=== PATIENT | male | born 1970 | race Caucasian/White ===

== ENCOUNTER → 2017-05-19 | Outpatient (CLI) | payer BC ==
[2017-05-19 12:24] VITALS: BMI 32.3
[2017-05-19 12:32] VITALS: BP 158/103; PULSE 53; RESP 16; TEMP 97.7
--- NOTE | 2017-06-26 03:39 | P.PN ---
Progress Note - Text DATE OF SERVICE: 05/19/2017 CHIEF COMPLAINT: Follow up sleeve gastrectomy. HISTORY OF PRESENT ILLNESS: Zeke Pop is a very pleasant 44-year-old gentleman who is status post sleeve gastrectomy August 2014. His highest lifetime weight was 348 pounds. His body mass index was 49.3. Today he comes in weighing 228 pounds. He has lost 120 pounds. He has gained 6 pounds in 2 years. His percent excess weight loss after is 69 % after 2.5 years. His body mass index is down to 32.3. No reports of gastroesophageal reflux disease or indigestion. He reports of dysphagia from swelling along his neck. Separately he reports persistent problems with panniculitis. He is on blood pressure medications although doses has decreased. He is no longer using a CPAP machine for sleep apnea. He is maintaining at least 100 g of protein daily. 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 He takes a daily multivitamin. His main concern includes a growth along his thyroid gland which is causing troubles with swallowing. PAST MEDICAL HISTORY: 1. Morbid obesity. 2. Hypertension. 3. Gastroesophageal reflux disease. 4. Depression. 5. Vitamin D deficiency. 6. Osteoarthritis. 7. Obstructive sleep apnea. 8. Irritable bowel syndrome. 9. History of myocardial ischemia. 10. DVT of the right leg. MEDICATIONS: 1. Hydralazine. 2. Zinc. 3. Oxybutynin. 4. Nystatin powder. 5. Multivitamin. 6. Lopressor. 7. Zestoretic. 8. Celexa. 9. Vitamin D. 10. Calcium. 11. Aspirin. ALLERGIES: LATEX including SHELLFISH. SOCIAL HISTORY: Lifelong nontobacco user. FAMILY HISTORY: Pertinent for morbid obesity. He also reports a family history of DVT. Family history of thyroid disorder. REVIEW OF SYSTEMS: CONSTITUTIONAL: Personal heaviest weight of 348 pounds. Highest body mass index of 49.9. [place] body weight of 173 pounds. He has lost 120 pounds. Percent excess weight loss is 69%. Present body mass index down from 49.3 to 32.3.. CARDIOVASCULAR: Moderate improvement of his hypertension. Also resolution of dyslipidemia. GASTROINTESTINAL: No reports of reflux disease. No reports of nausea and vomiting. MUSCULOSKELETAL: Lower back including bilateral hip and knee pain is now resolved. RESPIRATORY: No further reports of obstructive sleep apnea. No reports of pneumonia. HEMATOLOGIC: Prior history of deep venous thrombosis, now off all anticoagulants. HEENT: No troubles with vision or hearing. Has dysphagia from thyroid nodule. ENDOCRINE: No reports of diabetes. Has dysphagia from thyroid nodule. NEURO: No reports of headache or seizure disorders. PSYCH: His depression is well controlled. SKIN: No skin cancer. History panniculitis. PHYSICAL EXAM: VITAL SIGNS: 5 feet 10-1/2 inches, body weight of 228 pounds. BMI of 32.3. Vital Signs Temp 97.7 F 05/19/17 12:29 Pulse 53 L 05/19/17 12:29 Resp 16 05/19/17 12:29 BP 158/103 05/19/17 12:29 Pulse Ox GENERAL: Well developed and in no acute distress. Pleasant. HEENT: No sclera icterus. Extraocular movements grossly intact. Moist buccal mucosa. Head is atraumatic, normocephalic. Hears conversational speech. No nasal drainage. NECK: Supple without lymphadenopathy. No JV distention. Palpable fullness over the right thyroid gland over 4 cm. CHEST: Non-labored respirations and equal bilateral excursions. CARDIOVASCULAR: Regular rate and rhythm. Palpable 2+ radial pulses. ABDOMEN: Soft, nontender. Nondistended. Mild hyperemia over pannus consistent with panniculitis. MUSCULOSKELETAL: No clubbing, cyanosis or edema. NEUROLOGIC: No focal or lateralizing signs. Cranial nerves II through XII grossly intact. PSYCH: Appropriate affect. Alert and oriented to person, place and time. SKIN: Good skin turgor. Well perfused. STUDIES: Ultrasound of the thyroid gland reviewed demonstrating over 4.5-5 cm growth along the right thyroid gland. Imaging and studies were reviewed with him in detail. ASSESSMENT: 1. History of morbid obesity due to exogenous caloric intake, resolved. 2. Body mass index decrease from 49.3 to 32.3. 3. Hypertensive heart disease. 4. Dyslipidemia, resolved. 5. Status post sleeve gastrectomy. 6. Osteoarthritis of the bilateral knees and hips, improved. 7. Obstructive sleep apnea improved, resolved. 8. Thyroid neoplasm. 9. Dysphagia from thyroid nodule. 10. Panniculitis. PLAN: 1. Recommend bariatric metabolic panel. 2. On exam, he has a symptomatic thyroid nodule. May benefit from partial thyroidectomy. 3. He is pending biopsy of the suspected thyroid nodule. 4. On exam, he has mild panniculitis. Despite treatment of medicated and prescribed powders, he has had more than 2-3 years of therapy. Recommend evaluation for panniculectomy.
== END | disposition home or self-care (01) ==
LOC: BARWHC3 11:54
PROVIDERS: ATTEND Surgery Plastic and Reconstructive Surgery
DX: I11.0 Hypertensive heart disease with heart failure (principal); D49.7 Neoplasm of unspecified behavior of endocrine glands and other parts of nervous system; R13.10 Dysphagia, unspecified; M79.3 Panniculitis, unspecified
CPT/HCPCS: 97803; 99211

== ENCOUNTER → 2017-05-24 | Outpatient (CLI) | payer BC ==
[2017-05-24 10:17] LABS: CH 31.1; CHCM 33.4; HCT 47.7 % (39.0-53.0); HDW 2.44; HGB 15.4 gm/dL (13.0-17.5); MCH 30.2 pg (25.0-35.0); MCHC 32.2 g/dL (31.0-37.0); MCV 93.6 fL (80.0-100.0); Mean Platelet Volume 7.6; RDW 13.9 % (11.5-15.5); WBC 4.9 k/uL (3.8-10.6)
[2017-05-24 10:24] LABS: INR 1.1 (<1.2); Partial Thromboplastin Time 22.9 sec (22.0-30.0); Prothrombin Time 10.7 sec (9.0-12.0)
[2017-05-24 11:45] LABS: ALT 29 U/L (21-72); AST 24 U/L (17-59); Alkaline Phosphatase 61 U/L (38-126); Anion Gap 6 mmol/L; Blood Urea Nitrogen 16 mg/dL (9-20); Calcium 9.5 mg/dL (8.4-10.2); Carbon Dioxide 33 mmol/L (22-30); Chloride 103 mmol/L (98-107); Cholesterol 161 mg/dL (<200); Glucose 73 mg/dL (74-99); HDL Cholesterol 51 mg/dL (40-60); Iron 159 ug/dL (49-181); Magnesium 1.9 mg/dL (1.6-2.3); Non-African American GFR(MDRD) >60 (>60 ml/min/1.73 sqM); Phosphorous 3.4 mg/dL (2.5-4.5); Potassium 4.2 mmol/L (3.5-5.1); Sodium 142 mmol/L (137-145); Total Bilirubin 1.1 mg/dL (0.2-1.3); Total Protein 6.6 g/dL (6.3-8.2)
[2017-05-24 11:53] LABS: % Iron Saturation 58.2 % (20-50); Total Iron Binding Capacity 273 ug/dL (261-462)
[2017-05-24 12:37] LABS: Vitamin B12 765 pg/mL (239-931)
[2017-05-24 12:47] LABS: Hemoglobin A1C 5.2 % (4.2-6.1)
== END | disposition home or self-care (01) ==
LOC: LABWHC1 09:39
PROVIDERS: ATTEND Surgery Plastic and Reconstructive Surgery
DX: E66.01 Morbid (severe) obesity due to excess calories (principal); E21.1 Secondary hyperparathyroidism, not elsewhere classified; E89.1 Postprocedural hypoinsulinemia; D50.8 Other iron deficiency anemias; E44.0 Moderate protein-calorie malnutrition; E55.9 Vitamin D deficiency, unspecified; K74.1 Hepatic sclerosis; N19 Unspecified kidney failure; K50.90 Crohn's disease, unspecified, without complications
CPT/HCPCS: 36415; 80053; 80061; 82306; 82525; 82607; 82728; 82746; 83036; 83540; 83550; 83735; 83970; 84100; 84134; 84255; 84425; 84443; 84590; 84630; 85027; 85610; 85730

== ENCOUNTER → 2018-10-25 | Outpatient (CLI) | payer BC ==
[2018-10-25 09:07] LABS: HCT 43.2 % (39.0-53.0); HGB 14.5 gm/dL (13.0-17.5); MCH 30.1 pg (25.0-35.0); MCHC 33.5 g/dL (31.0-37.0); MCV 89.8 fL (80.0-100.0); Mean Platelet Volume 7.2; Platelet Count 197 k/uL (150-450); RBC 4.82 m/uL (4.30-5.90); RDW 13.5 % (11.5-15.5); WBC 4.7 k/uL (3.8-10.6)
[2018-10-25 09:15] LABS: INR 0.9 (<1.2); Partial Thromboplastin Time 23.8 sec (22.0-30.0); Prothrombin Time 10.2 sec (9.0-12.0)
[2018-10-25 12:27] LABS: Cholesterol 168 mg/dL (0-200); Triglycerides <50.0 mg/dL (0.0-149.0); VLDL Calculation 9.98 mg/dL (5.00-40.00)
[2018-10-25 12:28] LABS: ALT 17 U/L (10-49); AST 25 U/L (14-35); Albumin/Globulin Ratio 1.95 (1.20-2.10); Alkaline Phosphatase 61 U/L (41-126); Calcium 9.6 mg/dL (8.7-10.3); Carbon Dioxide 32.5 mmol/L (21.6-31.8); Chloride 106 mmol/L (96-109); Globulin 2.1 g/dL (1.6-3.3); Glucose 80 mg/dL (70-110); Magnesium 1.8 mg/dL (1.5-2.4); Phosphorus 4.4 mg/dL (2.4-5.1); Potassium 3.8 mmol/L (3.5-5.5); Sodium 145 mmol/L (135-145); Total Bilirubin 0.8 mg/dL (0.3-1.2); Total Protein 6.2 g/dL (6.2-8.2)
[2018-10-25 16:33] LABS: Iron Saturation 21.58 (15.00-50.00)
[2018-10-25 16:41] LABS: Vitamin D 25 Hydroxy 35.9 ng/mL (30.0-100.0)
[2018-10-25 16:42] LABS: Folate, Serum 21.8 ng/mL
[2018-10-25 16:46] LABS: Parathyroid Hormone Intact 40.2 pg/mL (14.0-72.0)
[2018-10-26 13:17] LABS: Vitamin A 50 ug/dL (38-106)
[2018-10-26 14:23] LABS: Zinc, Serum 80 ug/dL (60-130)
[2018-10-27 07:10] LABS: Vitamin B1 73 ug/L (38-122)
== END | disposition home or self-care (01) ==
LOC: LABWHC1 07:08
PROVIDERS: ATTEND Surgery Plastic and Reconstructive Surgery
DX: E21.1 Secondary hyperparathyroidism, not elsewhere classified (principal); E89.1 Postprocedural hypoinsulinemia; D50.9 Iron deficiency anemia, unspecified; E44.0 Moderate protein-calorie malnutrition; E55.9 Vitamin D deficiency, unspecified; K74.1 Hepatic sclerosis; N19 Unspecified kidney failure; K50.90 Crohn's disease, unspecified, without complications
CPT/HCPCS: 36415; 80053; 80061; 82306; 82525; 82607; 82728; 82746; 83036; 83540; 83550; 83735; 83970; 84100; 84134; 84255; 84425; 84443; 84590; 84630; 85027; 85610; 85730

== ENCOUNTER → 2018-11-02 | Outpatient (CLI) | payer BC ==
[2018-11-02 14:33] VITALS: BP 150/100; PULSE 55; RESP 16; TEMP 97.8; BMI 33.0
--- NOTE | 2018-11-02 15:23 | P.PN ---
Subjective Progress Note Date: 11/02/18 DATE OF SERVICE: 11/02/2018 CHIEF COMPLAINT: Follow up sleeve gastrectomy. HISTORY OF PRESENT ILLNESS: Zeke Pop is a very pleasant 47-year-old male who is status post sleeve gastrectomy August 2014. He is 5 years out. His highest lifetime weight was 348 pounds. His body mass index was 49.3. Today he comes in weighing 234 pounds from 228 pounds, 2 years ago. He has gained 5 pounds in 2 years. He has lost 114 pounds. Percent excess weight loss is 65%. No reports of gastroesophageal reflux disease. His percent excess weight loss is 65 %. His body mass index is down to 33.1. He has problems with hypertension. Now he is on four medications. PAST MEDICAL HISTORY: 1. Morbid obesity, BMI 49.3 initial 2. Hypertension. 3. Gastroesophageal reflux disease. 4. Depression. 5. Vitamin D deficiency. 6. Osteoarthritis. 7. Obstructive sleep apnea. 8. Irritable bowel syndrome. 9. History of myocardial ischemia. 10. DVT of the right leg. MEDICATIONS: 1. Hydralazine. 2. Zinc. 3. Oxybutynin. 4. Nystatin powder. 5. Multivitamin. 6. Lopressor. 7. Zestoretic. 8. Celexa. 9. Vitamin D. 10. Calcium. 11. Aspirin. ALLERGIES: LATEX including SHELLFISH. SOCIAL HISTORY: Lifelong nontobacco user. FAMILY HISTORY: Pertinent for morbid obesity. He also reports a family history of DVT. Family history of thyroid disorder. REVIEW OF SYSTEMS: CONSTITUTIONAL: Personal heaviest weight of 348 pounds. Highest body mass index of 49.3. [place] body weight of 173 pounds. CARDIOVASCULAR: Moderate improvement of his hypertension. Also resolution of dyslipidemia. GASTROINTESTINAL: No reports of reflux disease. No reports of nausea and vomiting. MUSCULOSKELETAL: Lower back including bilateral hip and knee pain is now resolved. RESPIRATORY: No further reports of obstructive sleep apnea. No reports of pneumonia. HEMATOLOGIC: Prior history of deep venous thrombosis, now off all anticoagulants. HEENT: No troubles with vision or hearing. Has dysphagia from thyroid nodule. ENDOCRINE: No reports of diabetes. Has dysphagia from thyroid nodule. NEURO: No reports of headache or seizure disorders. PSYCH: His depression is well controlled. SKIN: No skin cancer. History panniculitis. PHYSICAL EXAM: VITAL SIGNS: 5 feet 10-1/2 inches, body weight of 234 pounds. BMI of 33.1. Vital Signs Temp 97.8 F 11/02/18 14:30 Pulse 55 L 11/02/18 14:30 Resp 16 11/02/18 14:30 BP 150/100 11/02/18 14:30 Pulse Ox GENERAL: Well developed and in no acute distress. Pleasant. HEENT: No sclera icterus. Extraocular movements grossly intact. Moist buccal mucosa. Head is atraumatic, normocephalic. Hears conversational speech. No nasal drainage. NECK: Supple without lymphadenopathy. No JV distention. Palpable fullness over the right thyroid gland over 4 cm. CHEST: Non-labored respirations and equal bilateral excursions. CARDIOVASCULAR: Regular rate and rhythm. Palpable 2+ radial pulses. ABDOMEN: Soft, nontender. Nondistended. Mild hyperemia over pannus consistent with panniculitis. MUSCULOSKELETAL: No clubbing, cyanosis or edema. NEUROLOGIC: No focal or lateralizing signs. Cranial nerves II through XII grossly intact. PSYCH: Appropriate affect. Alert and oriented to person, place and time. SKIN: Good skin turgor. Well perfused. LABS: Reviewed in detail with low iron ASSESSMENT: 1. History of morbid obesity due to exogenous caloric intake, resolved. 2. Body mass index decrease from 49.3 to 33.1 3. Hypertensive heart disease. 4. Dyslipidemia 5. Status post sleeve gastrectomy. 6. Osteoarthritis of the bilateral knees and hips, improved. 7. Obstructive sleep apnea improved, resolved. 8. Thyroid neoplasm. 9. Dysphagia from thyroid nodule. 10. Panniculitis. 11. Iron deficiency anemia. PLAN: 1. Recommend dietary supplement for weight loss and blood pressure. 2. Recommend logging of foods. 3. Correct iron with iron supplement. 4. Follow up in 3 months for corrected nutrition Objective - Vital Signs Vital signs: Vital Signs Temp 97.8 F 11/02/18 14:30 Pulse 55 L 11/02/18 14:30 Resp 16 11/02/18 14:30 BP 150/100 11/02/18 14:30 Pulse Ox Intake & Output 11/01/18 11/02/18 11/02/18 18:59 06:59 18:59 Weight 106.141 kg
== END ==
LOC: BARWHC3 13:48
PROVIDERS: ATTEND Surgery Plastic and Reconstructive Surgery
DX: R63.5 Abnormal weight gain (principal); I10 Essential (primary) hypertension
CPT/HCPCS: 99211

== ENCOUNTER → 2019-07-25 | Outpatient (CLI) | payer BC ==
--- NOTE | 2019-07-25 15:48 | US ---
EXAMINATION TYPE: US thyroid st tissue head/neck DATE OF EXAM: 07/25/2019 COMPARISON: Outside US, FNA here CLINICAL HISTORY: I71.2 Thoracic Aorta Aneurysm;E04.1 Thyroid nodule. F/U GLAND SIZE: Right Lobe: 6.9 x 2.9 x 1.9 cm Overall Parenchyma: heterogenous Left Lobe: 5.1 x 1.6 x 1.7 cm Overall Parenchyma: heterogeneous Isthmus Thickness: 0.5 cm NODULES RIGHT: # of nodules measured on right: 3 1. 4.7 X 2.9 x 5.0 cm hypoechoic mixed nodule at the lower pole with well-defined margins; This no dule is wider than tall and shows no intranodular vascularity. Prior size: 5.9 on previous FNA 2. 1.4 X 0.9 x 1.3 cm hypoechoic mixed nodule at the mid pole with well-defined margins; This nodul e is taller than wide and shows intranodular vascularity. Prior size: Not visualized on prior 3. 0.9 X 0.9 x 0.8 cm hypoechoic solid nodule at the upper pole with well-defined margins; This nod ule is wider than tall and shows intranodular vascularity. Prior size: Not visualized in prior LEFT: # of nodules measured on left: 0 Bilateral neck scanned, irregular nodules/lesions visualized bilateral neck/ right lateral neck= 3.9 x 1.4 x 2.7 cm, vascular and mixed/ left lateral neck= 1.3 x 1.1 x 1.4 cm, vascular and mixed. 3 no dules right lobe. IMPRESSION: 1. New neck masses for which fine-needle aspiration is recommended. The mass on the left measures 1.4 cm and is predominantly solid in nature with has internal vascularity. The mass on the right measure s up to 3.9 cm and is lateral to the thyroid gland with hypervascularity internally. 2. Large previously biopsied right predominantly cystic thyroid nodule is smaller than the prior. Two new right thyroid nodules are also seen for which follow-up thyroid ultrasound in 6-12 months can be performed. A Yellow level critical message alert has been initiated for Zeke Farias DO via the [facility] Critical Results System on 07/25/2019 3:45 PM. This message alert has been sent to Zeke garcia DO via the preferences provided by the clinician for the receipt of Radiology Critical Findings . Message ID [id number].
--- NOTE | 2019-07-26 04:58 | CT ---
EXAMINATION TYPE: CT chest wo con DATE OF EXAM: 07/25/2019 COMPARISON: 11/13/2015 HISTORY: 48-year-old male follow-up aneurysm TECHNIQUE: Contiguous axial scanning of the without IV contrast. Coronal and sagittal reconstructions performed. CT DLP: 497.9 mGycm Automated exposure control for dose reduction was used. FINDINGS: Heart normal size without pericardial effusion. Scattered coronary vessel calcifications are present. Ascending aorta mildly aneurysmal at 4.2 cm versus 4.1 cm, previously. Mild atherosclerotic arch calcifications. Conventional arch vessel branching anatomy. Upper descending thoracic aorta stable at 3.3 cm. Lower descending thoracic aorta is ectatic at 2.8 cm, stable. No thoracic lymphadenopathy by CT size criteria. Heterogeneous hypodense large nodule within the right and median thyroid gland measuring 4.8 cm wide versus 5.5 cm in 2016. Overall stability or smaller size suggests a benign etiology. Correlate with f indings on patient's ultrasound performed on the same day. Mild bilateral gynecomastia incidentally noted. There is a new cluster of 4 nodules within the posterior right lower lobe, largest measuring 1 cm whi ch warrants follow-up in 3 months. No consolidation or pleural effusion. There is a small hiatal hernia with post surgical changes of sleeve gastrectomy. Cholecystectomy clip s. 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 IMPRESSION: 1. 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 2. A NEW CLUSTER OF 4 NODULES WITHIN THE POSTERIOR RIGHT LOWER LOBE, LARGEST NODULE MEASURING 1 CM. T HREE-MONTH FOLLOW-UP CT RECOMMENDED TO REASSESS. 3. SMALL HIATAL HERNIA WITH POSTSURGICAL CHANGES OF SLEEVE GASTRECTOMY. 4. A LARGE 4.8 CM THYROID NODULE STABLE TO SMALLER IN SIZE FROM 11/13/2015. REFER TO THYROID ULTRASOUN D PERFORMED ON THE SAME DAY REGARDING ADDITIONAL FINDINGS NOT WELL DEMONSTRATED BY CT.
== END | disposition home or self-care (01) ==
LOC: RADUSWWP 15:13
PROVIDERS: ATTEND Family Medicine
DX: E04.2 Nontoxic multinodular goiter (principal); I77.810 Thoracic aortic ectasia; R91.8 Other nonspecific abnormal finding of lung field
CPT/HCPCS: 71250; 76536

== ENCOUNTER 2019-08-11 09:06 | Day surgery (SDC) | payer BC ==
[2019-08-11 09:34] VITALS: RESP 14; TEMP 97.8
--- NOTE | 2019-08-11 11:02 | US ---
ULTRASOUND GUIDED FNA THYROID BIOPSY, FNA left thyroid lymph node, core biopsy right neck mass: CLINICAL HISTORY: Request for 1.4 cm right thyroid nodule FNA, bilateral FNA neck mass. FINDINGS: The procedure was explained to the patient. The risks, complications, benefits and alternatives were discussed and any questions were answered. Informed consent was obtained. Patient was placed supin e on the ultrasound table and prepped and draped in the usual sterile fashion. Utilizing a 25 gauge needle, five passes were made into the right thyroid nodule. 3 passes were made with finding of aspir ation into the left neck mass. A single 18-gauge core samples obtained of the larger right neck mass. Patient was stable throughout the procedure. Pathology is pending. All elements of maximal barrier and sterile technique were utilized. IMPRESSION: 1. Successful ultrasound guided FNA thyroid biopsy. 2. Successful ultrasound guided FNA left neck mass. 3. Successful ultrasound guided core biopsy right neck mass.
[2019-08-11 11:28] VITALS: BP 137/90; PULSE 52
== END 2019-08-11 11:05 | disposition home or self-care (01) ==
LOC: RADPROMAIN 09:06
PROVIDERS: ATTEND Family Medicine
DX: C73 Malignant neoplasm of thyroid gland (principal); E04.1 Nontoxic single thyroid nodule
CPT/HCPCS: 10005; 10006; 21550; 88173; 88305

== ENCOUNTER → 2019-12-12 | Outpatient (CLI) | payer BC ==
--- NOTE | 2019-12-12 09:50 | CT ---
EXAMINATION TYPE: CT chest w con DATE OF EXAM: 12/12/2019 COMPARISON: CT chest dated 07/25/2019 HISTORY: malignant neoplasm of thyroid CT DLP: 509.3 mGycm. Automated Exposure Control for Dose Reduction was Utilized. TECHNIQUE: CT scan of the thorax is performed following with IV Contrast, patient injected with 100 mL of Isovue 300. FINDINGS: LUNGS: The previously seen cluster of 4 nodules in the right lower lobe are unchanged in size with th e largest measuring 1 cm.. There is no pleural effusion or pneumothorax seen. Minimal bibasilar arce bsegmental dependent atelectasis. The tracheobronchial tree is patent. MEDIASTINUM: There are no greater than 1 cm hilar or mediastinal lymph nodes. Moderate coronary calc ifications are seen. No sizable pericardial effusion is seen. OTHER: There is some mild soft tissue swelling of the submandibular soft tissues and punctate foci of subcutaneous emphysema on image 1 of series 3 and coronal series 6 image 24. The thyroid gland is arce rgically absent with numerous surgical clips and soft tissue thickening throughout the thyroid surgic al bed. Minimal retroareolar, overall symmetric, probable gynecomastia is seen bilaterally. Partial gastrecto my change is noted at the gastroesophageal junction and around the greater curvature the stomach with small hiatal hernia. Gallbladder is surgically absent. Partially visualized right upper pole probabl e renal cysts measure 1.4 and 1.2 cm. Low-attenuation throughout the hepatic parenchyma limits evalua tion for hepatic masses and relates to mild degree hepatic steatosis. The liver is not visualized in its entirety. Mild degenerative change of the thoracic spine. IMPRESSION: 1. Soft tissue swelling of the submandibular soft tissues and punctate foci of subcutaneous emphysema . Correlate with any recent prior surgery or infection. Air could alternatively be within venous str uctures from the venipuncture. 2. Stable cluster of 4 right basilar pulmonary nodules in comparison to the exam of 07/25/2019. Consi dering the size and patient's history of recent thyroidectomy for thyroid carcinoma short-term follow -up is recommended in 6-12 months to ensure stability of size of the pulmonary nodules. 3. Postsurgical changes of the thyroidectomy bed including soft tissue thickening limiting evaluation for any residual disease. Continued follow-up with CT or ultrasound is recommended as well as serum thyroglobulin levels.
== END | disposition home or self-care (01) ==
LOC: RADCTMAIN 08:39
PROVIDERS: ATTEND Family Medicine
DX: R91.1 Solitary pulmonary nodule (principal); J43.9 Emphysema, unspecified; M79.89 Other specified soft tissue disorders; Z90.89 Acquired absence of other organs
CPT/HCPCS: 71260; Q9967

== ENCOUNTER → 2022-03-02 | Outpatient (CLI) | payer OTHER ==
[2022-03-02 14:32] LABS: HCT 44.6 % (39.6-50.0); HGB 14.3 g/dL (13.0-17.0); MCH 31.2 pg (27.0-32.0); MCHC 32.1 g/dL (32.0-37.0); MCV 97.2 fL (80.0-97.0); Mean Platelet Volume 10.6 fL (9.5-12.2); NRBC Per 100 WBC 0 /100 WBCS (0.0-0.0); Platelet Count 204 X 10*3/uL (140-440); RBC 4.59 X 10*6/uL (4.40-5.60); RDW 12.6 % (11.5-14.5); WBC 4.88 X 10*3/uL (4.50-10.00)
[2022-03-02 14:59] LABS: ALT 30 U/L (10-49); AST 31 U/L (14-35); African American GFR (CKD) 100.7 (60.0-200.0); BUN/Creat Ratio 10.88 Ratio (12.00-20.00); Blood Urea Nitrogen 10.8 mg/dL (9.0-27.0); Calcium 9.6 mg/dL (8.7-10.3); Carbon Dioxide 30.9 mmol/L (20.0-27.5); Chloride 103 mmol/L (96-109); Chol/HDL Ratio 3.97 Ratio; Glucose 96 mg/dL (70-110); Non-African American GFR(CKD) 86.9 (60.0-200.0); Potassium 4.3 mmol/L (3.5-5.5); Sodium 142 mmol/L (135-145); VLDL Calculation 11.18 mg/dL (5.00-40.00)
== END | disposition home or self-care (01) ==
LOC: LABWHC1 08:50
PROVIDERS: ATTEND Nurse Practitioner Family
DX: E78.2 Mixed hyperlipidemia (principal)
CPT/HCPCS: 36415; 80048; 80061; 84443; 84450; 84460; 85027

== ENCOUNTER → 2022-03-05 | Outpatient (CLI) | payer OTHER ==
--- NOTE | 2022-03-05 17:37 | EEG ---
ELECTROENCEPHALOGRAM REPORT DATE OF SERVICE: 03/05/2022 CLINICAL HISTORY: This is a 51-year-old gentleman with reported syncopal episodes. The video EEG is obtained to evaluate for seizure and epileptiform activity. RELEVANT MEDICATION: Nothing documented on medical record. EEG TYPE: A routine 21-channel EEG is performed with video using 10/20 electrode placement system. DESCRIPTION: Only wakefulness is obtained. During awake state the posterior-dominant rhythm consists of low to moderate voltage of 10 to 11 hertz activity that is well modulated and well sustained. There is no physiological stage II sleep architecture seen. There is no focal slowing. Interictal and ictal is none. ACTIVATION PROCEDURE: Photic stimulation did not evoke a posterior driving response. There is no abnormality during the photic stimulation. Hyperventilation was not performed. CLINICAL INTERPRETATION: This is a normal routine EEG. There is no focal slowing, epileptiform discharges or seizure on the EEG. Clinical correlation recommended. If there is concern for seizures, recommend ambulatory EEG. JUWAN / KATHLEENN: [id number] / MTDD
== END ==
LOC: NEUROMAIN 07:34
PROVIDERS: ATTEND Family Medicine
DX: R55 Syncope and collapse (principal); Z91.040 Latex allergy status; Z91.013 Allergy to seafood; F17.200 Nicotine dependence, unspecified, uncomplicated
CPT/HCPCS: 95816

== ENCOUNTER → 2022-03-11 | Outpatient (CLI) | payer OTHER ==
--- NOTE | 2022-03-12 07:26 | US ---
EXAMINATION TYPE: US carotid duplex BILAT DATE OF EXAM: 03/11/2022 COMPARISON: NONE CLINICAL HISTORY: 51-year-old male R55 SYNCOPE AND COLLAPSE, G43.809 MIGRAINE. TECHNIQUE: Carotid duplex ultrasound examination. Indirect doppler criteria was utilized. FINDINGS: EXAM MEASUREMENTS: RIGHT: Peak Systolic Velocity (PSV) cm/sec ----- Right CCA: 82.9 ----- Right ICA: 73.3 ----- Right ECA: 104.0 ICA/CCA ratio: 0.9 RIGHT: End Diastole cm/sec ----- Right CCA: 19.7 ----- Right ICA: 25.8 ----- Right ECA: 8.9 LEFT: Peak Systolic Velocity (PSV) cm/sec ----- Left CCA: 104.0 ----- Left ICA: 63.8 ----- Left ECA: 88.1 ICA/CCA ratio: 0.6 LEFT: End Diastole cm/sec ----- Left CCA: 21.1 ----- Left ICA: 23.8 ----- Left ECA: 12.7 VERTEBRALS (direction of flow): Right Vertebral: Antegrade Left Vertebral: Antegrade Rhythm: Normal Senior Payroll Manager notes: No significant stenosis IMPRESSION: No hemodynamically significant internal carotid artery stenosis on either side. Criteria for Assigning % of Stenosis / Diameter reduction (Estimation based on the indirect measurements of the internal carotid artery velocities (ICA PSV). 1. Normal (no stenosis)=ICA PSV < 125 cm/s: ratio < 2.0: ICA EDV<40 cm/s. 2. Less than 50% stenosis=ICA PSV < 125 cm/s: ratio < 2.0: ICA EDV<40 cm/s. 3. 50 to 69% stenosis=ICA PSV of 125 to 230 cm/s: ration 2.0 ? 4.0: ICA EDV 40-100 cm/s. 4. Greater than 70% stenosis to near occlusion= ICA PSV > 230 cm/s: ratio > 4.0: ICA EDV > 100 cm/s. 5. Near occlusion= ICA PSV velocities may be low or undetectable: variable ratio and ICA EDV. 6. Total occlusion=unable to detect flow.
== END | disposition home or self-care (01) ==
LOC: RADUSWWP 16:06
PROVIDERS: ATTEND Family Medicine
DX: R55 Syncope and collapse (principal); I10 Essential (primary) hypertension; G43.809 Other migraine, not intractable, without status migrainosus
CPT/HCPCS: 93880

== ENCOUNTER → 2022-04-22 | Outpatient (CLI) | payer OTHER ==
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
== END ==
LOC: RADMRIMAIN 21:30
PROVIDERS: ATTEND Psychiatry & Neurology Neurology
DX: G93.9 Disorder of brain, unspecified (principal); I67.82 Cerebral ischemia
CPT/HCPCS: 70553; A9585